=== PATIENT | male | born 2000 | race Caucasian/White ===

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

== ENCOUNTER 2021-05-27 18:05 | Emergency (ER) | payer BC ==
[~2021-05-27] VITALS: Ht 172.7 cm; Wt 80.0 kg
[~2021-05-27 18:05] MED LIST: PRILOSEC20 MG PO
[2021-05-27] MEDS ORDERED: PREDNISONE50 MG PO (18:36)
[2021-05-27 18:40] VITALS: BP 130/77
== END 2021-05-27 18:40 | disposition home or self-care (01) | DRG 918 ==
LOC: ED 18:05
DX: T63.431A Toxic effect of venom of caterpillars, accidental (unintentional), initial encounter (principal)

== ENCOUNTER 2021-05-30 17:53 | Emergency (ER) | payer BC ==
[~2021-05-30] VITALS: Ht 180.3 cm; Wt 85.0 kg
[~2021-05-30 17:53] MED LIST changes: +PREDNISONE50 MG PO
[2021-05-30 19:07] LABS: HEMOGLOBIN 15.8 g/dl (14.0-18.0); IMMATURE GRANULOCYTES 0.4 % (0.0-5.0); MEAN CELL VOLUME 95.8 fL CALC (80.0-100.0); MEAN CORPUSCULAR HGB 31.5 pG CALC (26.0-32.0); MEAN CORPUSCULAR HGB CONC 32.9 g/dL CAL (32.0-36.0); NEUT# 5.47 thou/uL (1.82-7.42); RED BLOOD COUNT 5.01 mill/uL (4.70-6.10); RED CELL DISTRI WIDTH 11.5 % (11.5-15.5)
[2021-05-30 19:26] LABS: ALBUMIN 4.3 g/dL (3.2-5.0); ALKALINE PHOSPHATASE 59 u/l (38-126); ANION GAP 13 (6-22 (CALC)); BILIRUBIN, TOTAL 0.7 mg/dL (0.0-1.4); BUN 13 mg/dL (9-20); BUN/CREATININE RATIO 13 (12-20 (CALC)); CARBON DIOXIDE 27 mmol/l (22-30); CHLORIDE 102 mmol/l (95-108); GFR > 60 ML/MIN (>=60 (CALC)); GFR FOR AFR.AMER. > 60 ML/MIN (>=60 (CALC)); POTASSIUM 3.8 mmol/l (3.5-5.1); SGOT/AST 25 u/l (17-59); SODIUM 138 mmol/l (137-146); TOTAL PROTEIN 7.2 g/dL (6.3-8.2)
[2021-05-30] MEDS ORDERED: PROTONIX40 M2 PO (19:58)
[2021-05-30 21:24] VITALS: BP 94/71
== END 2021-05-30 21:31 | disposition home or self-care (01) | DRG 313 ==
LOC: ED 17:53
PROVIDERS: Family Medicine
DX: R07.9 Chest pain, unspecified (principal); F17.200 Nicotine dependence, unspecified, uncomplicated

== ENCOUNTER 2022-11-07 08:39 | Emergency (ER) | payer SELFPAY ==
[~2022-11-07] VITALS: Ht 182.9 cm; Wt 82.0 kg
[2022-11-07] VITALS (7 sets, daily range): BP systolic 99–127; BP diastolic 47–80
[~2022-11-07 08:39] MED LIST changes: +PROTONIX40 M2 PO
[2022-11-07] MEDS ORDERED: OMEPRAZOLE10 MG PO (09:00)
== END 2022-11-07 10:13 | disposition home or self-care (01) | DRG 153 ==
LOC: ED 08:39
DX: J06.9 Acute upper respiratory infection, unspecified (principal); K21.9 Gastro-esophageal reflux disease without esophagitis; F17.200 Nicotine dependence, unspecified, uncomplicated; Z20.822 Contact with and (suspected) exposure to COVID-19

== ENCOUNTER 2024-02-28 11:40 | Emergency (ER) | payer SELFPAY ==
[~2024-02-28] VITALS: Ht 182.9 cm; Wt 78.0 kg
[~2024-02-28 11:40] MED LIST changes: +OMEPRAZOLE10 MG PO
[2024-02-28 11:46] VITALS: BP 117/77
[2024-02-28 12:00] VITALS: BP 115/80
[2024-02-28] MEDS ORDERED: AMOX/K CLAV875 M1 PO (12:29)
[2024-02-28 12:30] VITALS: BP 108/67
[2024-02-28 12:34] VITALS: BP 108/67
== END 2024-02-28 12:41 | disposition home or self-care (01) | DRG 153 ==
LOC: ED 11:40
DX: J02.9 Acute pharyngitis, unspecified (principal); K21.9 Gastro-esophageal reflux disease without esophagitis; Z72.0 Tobacco use; Z20.822 Contact with and (suspected) exposure to COVID-19